=== PATIENT | female | born 1975 | race Caucasian/White ===

== ENCOUNTER 2016-10-11 09:50 | Inpatient (IN) | payer OTHER ==
[~2016-10-11] VITALS: Ht 167.6 cm; Wt 93.9 kg
[2016-10-11 10:08] VITALS: BP 113/85
[2016-10-11 10:48] LABS: ABSOLUTE BASOPHIL COUNT 0 /CUMM (0.0-0.2); ABSOLUTE EOSINOPHIL COUNT 0.1 /CUMM (0.0-0.7); ABSOLUTE GRANULOCYTE CT 7.4 /CUMM (1.4-6.5); ABSOLUTE LYMPH COUNT 1.8 /CUMM (1.2-3.4); ABSOLUTE MONOCYTE COUNT 0.7 /CUMM (0.10-0.60); BASOPHIL % 0.4 % (0.0-2.0); EOSINOPHIL % 1.1 % (0-5); GRANULOCYTE % 73.9 % (42.2-75.2); HEMATOCRIT 34.7 % (37-47); MEAN CORPUSCULAR HGB 31.9 PG (27.0-31.0); MEAN CORPUSCULAR HGB CONC 34.2 G/DL (33.0-37.0); MEAN CORPUSCULAR VOLUME 93.4 FL (81.0-99.0); MEAN PLATELET VOLUME 9.5 FL (7.4-10.4); PLATELET COUNT 247 /CUMM (130-400); RBC DISTRIBUTION WIDTH 11.9 % (11.5-14.5); RED BLOOD CELL CT 3.72 /CUMM (4.20-5.40)
[2016-10-11] MEDS ORDERED: PRENATAL TABLE1 EAC2 PO (16:28)
--- NOTE | 2016-10-11 17:05 | History & Physical ---
General Information and HPI MD Statement: I have seen and personally examined DB ROBERT and documented this H&P. The patient is a 41 year old female at [39] weeks and [5] days gestation who presented with a chief complaint of [induction for favorable ccervix and age >/= 40 years old]. Source of Information: patient, old records Exam Limitations: no limitations History of Present Illness: Is a 41-year-old 1 para 0 LMP of 01/07/2016 and OSCAR of 10/13/2016 is brought in at 39-5/7 weeks for induction of labor due to favorable cervix and maternal age greater than or equal to age 40 Issues for this #1 advanced maternal age Preconceptionally she had genetic screening that showed that she was negative for cystic fibrosis, SMA, and fragile X. First trimester screen at [facility] showed a thickened nuchal translucency. Patient declined self free DNA testing once the increased nuchal translucency was noted. No other abnormalities were noted at that time. Patient declined invasive genetic testing. She subsequently underwent anatomy scan in [facility] that showed normal findings and a normal echocardiogram to the fact that this is an IVF Conception Patient has been followed with weekly biophysical and nonstress testing since 32 weeks Problem #2 history of HPV change. Her initial colpo was number of years ago she had a Pap in November 2015 that showed ASCUS cytology changes with positive high risk HPV. She had a repeat colposcopy in 2015 showed SOTO-1/HPV change Problem #3 patient noted a pea-sized superficial nodule in the left axilla. This is right around 30 weeks' gestation in July. August 2016, Ultrasound was 0.4 cm cerebrovascular density and evaluation with Dr. Dias breast specialist, ultrasound-guided needle biopsy was was negative- breast gland tissue with ductal dilation and no evidence of any lymph node tissue Problem #4 estimated weight this week showed the baby to be 9 pounds. Patient was not of any risk factors I would've needed a sheet shoulder dystocia screen. Size of the baby discussed with patient and nursing staff, we will be prepared for possible shoulder dystocia at delivery. If patient has a prolonged second stage and will be less inclined to consider using vacuum extraction her forceps at time of delivery #5 patient has to minor risk factors for DVT. Patient has a BMI greater than 30 (32.7) And advanced maternal age greater than 40 (@ age 41). 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 Ultrasound showed a 4 mm vascular density. patient evaluated the Sandra Dias MD breast specialist ultrasound-guided biopsy showed breast tissue with dilated ducts no evidence of lymphatic tissue Surgical History Pertinent Surgical History: 2000 wrist surgery 2013 and 2015 colposcopy for HPV change August 2016 ultrasound-guided left axillary biopsy Past Family/Social History Family History Relations & Conditions if any Relation not specified for: *No pertinent family history Psychosocial History Where do you live? Home Who Do You Live With? spouse, self Primary Language: Colombian Smoking Status: Never Smoked ETOH Use: denies use Illicit Drug Use: denies illicit drug use Review of Systems Review of Systems: Currently negative for cardiac, GI complaints Exam & Diagnostic Data Last 24 Hrs of Vital Signs/I&O Temp 98.7 pulse 82 respirations 16 blood pressure 113/85 pulse ox 99% room air Vital Signs Date Time Temp Pulse Resp B/P Pulse O2 O2 Flow FiO2 Ox Delivery Rate 10/11 1008 98.7 82 16 113/85 99% RA Intake & Output 10/11 1600 10/11 0800 10/11 0000 Intake Total Output Total Balance Patient 210 lb Weight BMI 32.7 Obstetric Exam Wgt Gained During : 28 lbs Pelvimetry: Should be adequate for sex baby Dilation (cm): 5 Effacement (%): 80 Station: 0 Membranes: intact Fluid: unknown Fundal Height (cm): 38 Multiple Gestation? No Contractions: Irregular #1 - FHR Baseline: 120 Category: 1 Estimated Weight: 9# Presentation: VTX Patient for Induction? Yes Fisher Score Fisher Score Response Value Cervix Position: mid-position 1 Cervix Consistency: medium 1 Cervix Effacement: >80% 3 Cervix Dilation: 3-4 cm 2 Cervix Station: -1 2 Total 9 Physical Exam General Appearance Alert, Oriented X3, Cooperative, No Acute Distress Skin No Significant Lesion Cardiovascular Regular Rate Lungs Normal Air Movement Abdomen Normal Bowel Sounds, Soft, No Tenderness, No Hepatospenomegaly, gravid uterus fundal height 39 scans estimated weight 9 pounds. Heart rate 120 to 1:30 category 1 mild every other contraction Neurological Normal Gait, Normal Speech Extremities No Tenderness/Swelling Reproductive (FEMALE) Normal female genitalia Labs Blood Type & Rh: A+ Antibody Screen: n Hct/Hgb & Platelets #1: 12.1/36.4 platelet count 293,000 Hct/Hgb & Platelets #2: 11.7/35.8 platelet count 280,000 Rubella: Immune VDRL #1: N VDRL #2: N HbsAg: N HIV #1: N HIV #2 N 1 Hr P 3 Hr PG: N/A Group B Strep: POS Initial Ultrasound: 03/06/2016 size equal dates equals ultrasounds at 8 weeks 6 days OSCAR of 2016 Anatomy Ultrasound: Anatomy scan was performed 05/12/2016 size equals dates equals ultrasound. Normal level II anatomy scan. echo performed at 23 weeks within normal limits Ultrasound for EFW: 09/22/2016 growth scan was 8 lbs. 12 oz. 92nd percentile 3985 g. Follow-up scan 10/09/2016 9 pounds Genetic Testing: Patient underwent preconception genetic testing that showed that she was negative for cystic fibrosis, SMA, and fragile X. She underwent first trimester screen suggested increased nuchal translucency. When she got reported increased nuchal entrance lucency she declined this offer a DNA. She had follow-up scan in [facility] that showed a normal targeted anatomy with a negative aneuploidy scan at 18+ weeks. She ultimately had a echo that was within normal limits. Patient had declined invasive genetic testing also she declined [facility] amniocentesis Last 24 Hrs of Labs/Cody: Laboratory Tests 10/11/16 1025: CBC w Diff NO MAN DIFF REQ, RBC 3.72 L, MCV 93.4, MCH 31.9 H, RDW 11.9, MPV 9.5, Gran % 73.9, Lymphocytes % 17.9 L, Monocytes % 6.7, Eosinophils % 1.1, Basophils % 0.4, Absolute Granulocytes 7.4 H, Absolute Lymphocytes 1.8, Absolute Monocytes 0.7 H, Absolute Eosinophils 0.1, Absolute Basophils 0, PUBS MCHC 34.2 10/11/16 1020: Urine Color YEL, Urine Clarity CLEAR, Urine pH 7.5, Ur Specific [place] 1.010, Urine Protein NEG, Urine Ketones NEG, Urine Nitrite NEG, Urine Bilirubin NEG, Urine Urobilinogen 0.2, Ur Leukocyte Esterase NEG, Ur Microscopic EXAM NOT REQUIRED, Urine Hemoglobin NEG, Urine Glucose NEG Assessment/Plan Assessment/Plan: Imaging at 39-5/7 days who is here for an induction for advanced maternal age at age 41, 39+ weeks, and favorable cervix. It is somewhat concerning that weight is 9 pounds Plan is for careful monitoring, Pitocin induction, penicillin coverage for the history of positive group B beta strep in the per protocol Anticipate normal vaginal delivery. In light of the relatively large size of the baby, if the patient has a prolonged second stage I would be inclined not to use a vacuum extractor forceps , to facilitate delivery of the baby. Larger size baby also necessitated a discussion with the nursing staff, For possible interventions if there is the shoulder dystocia at time of delivery As Ranked By This Provider Problem List: 1. 2. Advanced maternal age (AMA), 40 years or greater 3. Elective induction of labor planned 4. BMI 32.0-32.9,adult Core Measures/Miscellaneous Venous Thromboembolism VTE Risk Factors: Age > 40, / VTE Contraindications: Active Bleeding (FALL RISK) VTE Prophylaxis Ordered Inpt: Mechanical (ALPS/TEDS) (lovenox PP BMI 32.7, age 41) VTE Diagnosis: No Beta Peyton Is Beta Peyton a Home Med? No If No, Why Not? NOT CLINICALLY INDICATED Antibiotics Is Patient on Antibiotics? Yes If Yes: prophylaxis Attending MD Review Statement Attending Statement Attending MD Statement: examined this patient, discussed with family, discussed w/nursing Attending Assessment/Plan: Briseida Shaffer ending dictation
--- NOTE | 2016-10-12 05:19 | PN- OBGYN ---
Surgical Brief Attending Note Brief Attending Note: S: Pt had steadily progressed in Labor, she was noted to be Fully and -1 station @ 2 am. (IUPC was placed @ 23:20, when pt was slowly progressing from 8 to 9 cm) Pt labored down until @ 02:30, and stated she had rectal pressure and wanted to start pushing. (Patients elderly parents are here on the unit, father is age 81, so pt may have tried to hasten getting to pushing and not properly labor down, to limit how long her parents had to wait to see their only grandchild. FHR was baseline 120's with good accellerations. VTX was @ -1. With pushing some variable decells to @ 100 bpmwere noted but good recovery. Mat T was 100.5 @ 3:30 and was given IV acetominophen x one. With pushing had some increase in baseline from 120' to 140's with accellerations. Vaginal exam showed small caput and molding, VTX descended intermittantly to 0 to +1 station- but not a consistent effort. @ 3:50, following a contraction, FHR decelleration to 100's with slow recovery over 4 to 5 minutes to 130- 140's. During this time pitocin was turned off, Maternal O2 was given, and change in Maternal position from hip wedge to lateral positioning. After recovery, FHR baseline was 140's with accellerations. Discussion with patient that @ this point we should turn off the epidural and allow her to have more sensation in the perineal area to help with her pushing. Contractions spaced out to every 4 to 5 minutes so pitocin was restarted. Assessment/ Plan : managenment of second stage- FHR shows baby is doing well. Baby has audible FM, pt never really labored down more than 30 minutes and then was not pushing effectively. will allow her to have return of sensation without the epidural, and to try to push again in the next hour or so. Patient and understand and agree. Briseida Shaffer MD
--- NOTE | 2016-10-12 07:31 | PN- OBGYN ---
Surgical Brief Attending Note Brief Attending Note: Once th epidural "wore off" Pt tried pushing again with manual vaginal assistance, to help guide her pushing efforts. She began pushing @ 06:00. By 6: 20 she was too uncomfortable with upper flank discomfort/ pain that she could no longer continue to try to push. Even with pushing, she could not maintain consistent pressure with her attempts. The VTX showed minimal movement with pushing. FHR remained reassuring through out the pushing attempt. FHR 110-12 BPM baseline Cat 1 contraction Q 2 to 3 min Pitocin @ 2 mu/hr Vag exam VTX @ 0 station with caput and molding PT became much more comfortable with the epidural re-topped. After a long discussion with the patient and her family, patient has decided that she would prefer a Cesarian Section. Due to a long labor and a presumed EF Wt of 9# discussed the risk of PP atony and resultant PP hemorhage, that may require medication (hemabate, methergine, misoprostyl inaddition to IV pitocin) extra uterine compression sutures, placement of a Bakri Balloon or even hysterecomy. Pt and and mother understand and agree. discussed with anesthesia- they agreed to a second IV site in the OR discussed with blood bank to switch the pt from type and screen to type and cross. plan Cesarian Section Elisabeth Shaffer
--- NOTE | 2016-10-12 09:10 | Labor & Delivery Summary ---
Delivery Summary Section: Section: primary Indication: Failure to descend Anesthesia: epidural Placenta: Placenta: normal, 3 vessel, occult cord prolapse @ delivery Anesthesia: epidural Cord PH Value: 7.34 Baby's Weight: Baby Boy 8#4oz Apgars - 1 Min: 8 Apgars - 5 Min: 9 Additional Comments: Prolonged second stage with failure to descend.. Patient was unable to push effectively either with or without epidural support. In the operating room at time of delivery. Upon entry into the uterine cavity there was an occult cord prolapse and the right arm delivered through the incision. Right arm had to be reduced and the deflexed occiput posterior position and the head required the head deflexed and then brought through the abdominal wall incision. Meconium-stained fluid noted at time of delivery weight 8 lbs. 4 oz. Apgars 8,9, and 9 cord pH 7.34. Minimal low segment atony was encountered which was managed by intramyometrial Pitocin IV Pitocin and IM Methergine. Uterine incision had a right low segment /cervical extension that was easily repaired without significant blood loss. Normal placenta 3 vessel cord Good hemostasis at all levels of closure.
--- NOTE | 2016-10-12 09:41 | Operative Report ---
Operative/Inv Procedure Report Surgery Date: 10/12/16 Name of Procedure: Primary low cervical transverse section Pre-Operative Diagnosis: 41-year-old with a flattened labor curve who after becoming fully dilated significant descent of the head after 5 hours of intermittent pushing. Estimated weight by ATU ultrasound showed the baby to be likely 9 pounds. Reassuring heart rate tracing Post-Operative Diagnosis: Same plus deflexed occiput posterior presentation. Occult cord prolapse noted upon entry into the uterine cavity, and initially a right hand and arm extending through the uterine incision, that required reduction before delivery of the vertex Estimated Blood Loss: 550 ML Surgeon/Service Center Manager: BERNADETTE HARMON,DES Cardt.: Eugenia Hernandez DO Anesthesia: epidural Monitors: Pulse oximeter, blood pressure cuff, EKG electrodes IV Fluids: 850 ML crystalloid Implants: None Urine Output: 480 mL clear yellow Drains: Gomez Specimens: Placenta Microbiology: N Tourniquet: N Complications: N Condition: GOOD Operative Indication: Failure to descend, presumed likely macrosomia Operative/Procedure Note Note: Patient was brought to the operating room and placed on the OR table in dorsal supine position. Timeout was discussed by the team and agreed upon. Patient had received in labor penicillin prophylaxis protocol for positive group B strep , she then received 2 g Kefzol upon entry into the OR. Pneumatic compression boots were placed on her lower extremities. Her abdomen was prepped and draped in the usual sterile fashion. After a good level of anesthesia was noted, her was brought to the operating room. Then a transverse incision was made in the skin 2 fingerbreadths above the symphysis. Incision was extended down to the fascia. Fascia then divided longitudinally and manually rectus muscles divided manually. The parietal peritoneum was elevated, incised and manually divided. A moderate amount of straw-colored peritoneal fluid was noted upon entry into the peritoneal cavity. Transverse incision was made in the peritoneum overlying the low uterine segment, and the utero vesicular fold was developed and the bladder was reflected inferiorly. Transverse incision was made in the uterine muscle and the cavity was entered bluntly. The uterine incision extended the right and left sides manually. Meconium-stained fluid was noted upon entry into the uterine cavity. At this point we had an 8 inch occult cord prolapse and presentation of the right arm and hand. Also projected through the uterine incision. The right arm and hand were then carefully returned to the uterine cavity, and the surgeon's hand was introduced into the low uterine segment and a deflexed occiput posterior vertex presentation was noted. The head was carefully flexed and brought through the uterine and abdominal wall incisions. Mouth and nasopharynx bulb suctioned on the uterus on the abdominal wall and the rest of infant's body was delivered without complication at 08:09 on 10/12/2016. Very broad shoulders of the were encountered delivering the baby through the uterine wall and the abdominal wall incisions. The umbilical cord was triply clamped and cut (cord pH 7.34) live viable baby boy was handed to the pediatric team for evaluation. weight 8 lbs. 4 oz. Apgars were 9, 9 and 9. Placenta was spontaneously delivered intact normal configuration 3 vessel cord. The uterus was exteriorized, and draped with wet lap pad. The uterine cavity was wiped clean with a sterile lap pad. Patient was given IV Pitocin intramyometrial Pitocin and ultimately IM Methergine for some low segment atony. Uterine incision was inspected and found to have a low cervical extension on the right-hand side but fortunately for us, there was no significant bleeding at that site. The uterine incision was closed with 2 separate layers first layer running locking second layer running imbricating. Pelvis was irrigated fluid was aspirated. The outer configuration the uterus fallopian tubes and ovaries were within normal limits. Uterus returned the abdominal pelvic cavity good hemostasis continued. Parietal peritoneum was closed with running suture. Muscle reapproximated with horizontal mattress suture. The muscle layer found to be dry. Fascia closed with running intermittently locking suture, in 2 separate segments. Subcutaneous tissues irrigated, and the fluid was aspirated. Subcutaneous was closed with running suture. Skin edges reapproximated with Monocryl subcuticular stitch. Completion the procedure sponge needle aspirate counts were correct 4. Compression dressing was applied. The patient was then placed in a frog-leg, dorsal supine position and the uterus was compressed manually with an abdominal hand. Moderate amount, 75 ML's of blood and Kiwi size clot was removed from the vaginal area. Vaginal exam showed no upper vaginal vault clot no low uterine segment clot and no significant bleeding after evacuation of the blood from the uterus. She was returned to dorsal supine position and then transferred to the stretcher for transport to the post delivery area. Uterus remained firm and lochia remained average. Rh+ immune Findings: 10/12/2016 08:09 time of delivery vertex presentation deflexed occiput posterior. At time of delivery occult cord prolapse and right hand and arm extended through the uterine incision that needed to be reduced before delivery of the vertex. Tight shoulders noted at time of delivery. Vigorous live viable baby boy. weight 8 lbs. 4 oz., Apgars 9, 9, and 9. Meconium-stained fluid noted at delivery cord pH 7.34 Normal placenta 3 vessel cord Uterine incision with a right hand cervical extension without significant blood loss. Mild uterine segment atony managed with intramyometrial Pitocin IV Pitocin and IM Methergine Normal uterus tubes and ovaries Discharge Disposition: CC: EUGENIA HERNANDEZ DO
[2016-10-13 08:46] LABS: ABSOLUTE BASOPHIL COUNT 0 /CUMM (0.0-0.2); BASOPHIL % 0.2 % (0.0-2.0)
[2016-10-13 08:52] LABS: ABSOLUTE EOSINOPHIL COUNT 0 /CUMM (0.0-0.7); ABSOLUTE GRANULOCYTE CT 13.3 /CUMM (1.4-6.5); ABSOLUTE MONOCYTE COUNT 0.8 /CUMM (0.10-0.60); EOSINOPHIL % 0.3 % (0-5); GRANULOCYTE % 82.1 % (42.2-75.2); HEMATOCRIT 30.2 % (37-47); MEAN CORPUSCULAR HGB 31.5 PG (27.0-31.0); MEAN CORPUSCULAR HGB CONC 33.7 G/DL (33.0-37.0); MEAN CORPUSCULAR VOLUME 93.6 FL (81.0-99.0); MEAN PLATELET VOLUME 10.1 FL (7.4-10.4); PLATELET COUNT 245 /CUMM (130-400); RBC DISTRIBUTION WIDTH 12.9 % (11.5-14.5); RED BLOOD CELL CT 3.22 /CUMM (4.20-5.40)
[2016-10-13 08:56] LABS: WHITE BLOOD CELL COUNT 16.2 /CUMM (4.8-10.8)
[2016-10-13] MEDS ORDERED: IBUPROFEN800 M1 PO (08:56)
[2016-10-13] MEDS ORDERED: PERCOCET 5-3251 EACH PO (08:56)
--- NOTE | 2016-10-13 09:48 | PN- Post Delivery/GYN ---
Subjective Subjective: OVERALL DONING WELL Review of Systems: NEG FOR CARDIAC PULMONARY GI COMPLAINTS Objective Last 24 Hrs of Vital Signs/I&O AFEBRILE VSS Physical Exam General Appearance Alert, Oriented X3, Cooperative, No Acute Distress Skin No Significant Lesion Cardiovascular Regular Rate Lungs Normal Air Movement Abdomen Normal Bowel Sounds, Soft, No Tenderness, No Hepatospenomegaly, UTERUS FIRM MIDLINE NONTENDER 2 TO 3 FB BELOW UMBILICUS INCIS CLEAN DRY INTACT Neurological Normal Gait, Normal Speech, Strength at 5/5 X4 Ext, Normal Tone Extremities No Tenderness/Swelling Reproductive (FEMALE) Normal female genitalia, AVGE LOCHIA Current Medications: Current Medications Sig/Herbert Start time Last Medication Dose Route Stop Time Status Admin Acetaminophen 650 MG Q4P PRN 10/12 0915 AC PO Bisacodyl 10 MG DAILY NEEDED PRN 10/12 0915 AC FL Bisacodyl 5 MG DAILY NEEDED PRN 10/12 0915 AC PO Butorphanol Tartrate 1 MG Q4P PRN 10/11 1430 AC 10/11 IV 1435 Butorphanol Tartrate 1 MG Q4P PRN 10/11 1430 10/11 IM 1434 Diphenhydramine HCl 25 MG Q6P PRN 10/12 1030 AC 10/12 IV 2333 Docusate Sodium 100 MG BID 10/12 2200 AC PO Enoxaparin Sodium 40 MG DAILY 10/12 1000 AC 10/12 SC 2000 Hydromorphone HCl 50 MG Q24H PRN 10/12 0915 10/12 Sodium Chloride 45 ML IV 0920 Hydroxyzine HCl 50 MG AT BEDTIME NEED.. 10/13 0000 AC PO 10/16 0001 Ibuprofen 800 MG Q6P PRN 10/12 0915 10/13 PO 0705 Ketorolac 30 MG Q6H 10/12 0930 DC 10/12 Tromethamine IV 10/13 0331 0900 Lactated Ringer's 1,000 ML Q8H 10/12 0915 AC 10/12 IV 1631 Magnesium Hydroxide 30 ML DAILY NEEDED PRN 10/12 0915 AC PO 10/15 0916 Metoclopramide HCl 10 MG Q6P PRN 10/12 1030 AC IV Naloxone HCl 0.2 MG ONCE PRN 10/12 1030 IV Ondansetron HCl 4 MG Q6P PRN 10/11 2345 AC 10/11 IV 2330 Oxycodone/ 1 TAB Q4P PRN 10/12 0915 AC 10/13 Acetaminophen PO 0705 Oxycodone/ 2 TAB Q4P PRN 10/12 0915 AC Acetaminophen PO Oxytocin 20 UNITS Q8H 10/12 0915 DC 10/12 Lactated Ringer's 1,000 ML IV 10/12 1714 0910 Oxytocin 30 UNITS PER PROTOCL 10/11 1000 AC 10/11 Lactated Ringer's 500 ML IV 1041 Penicillin G 2.5 MU Q4H 10/11 1400 DC 10/12 Potassium IV 10/12 1029 0709 Dextrose/Water 100 ML Senna 187 MG AT BEDTIME NEED.. 10/12 0915 AC PO Simethicone 80 MG Q6 10/13 0600 AC PO Last 24 Hrs of Labs/Cody: Laboratory Tests 10/13/16 0655: CBC w Diff NO MAN DIFF REQ, RBC 3.22 L, MCV 93.6, MCH 31.5 H, RDW 12.9, MPV 10.1, Gran % 82.1 H, Lymphocytes % 12.3 L, Monocytes % 5.1, Eosinophils % 0.3, Basophils % 0.2, Absolute Granulocytes 13.3 H, Absolute Lymphocytes 2.0, Absolute Monocytes 0.8 H, Absolute Eosinophils 0, Absolute Basophils 0, PUBS MCHC 33.7 Assessment/Plan Assessment/Plan STABLE PPD 3 1 ADVANCE DIET INCREASE AMBULATION PO PAIN MEDS ? WANR CIRC FOR THEIR SON Problem List: 1. Advanced maternal age (AMA), 40 years or greater 2. Elective induction of labor planned 3. BMI 32.0-32.9,adult 4. Arrest of descent, delivered, current hospitalization 5. delivery delivered Attending MD Review Statement Attending Statement Attending Statement: examined this patient, discussed with family, discussed with nursing Attending Assessment/Plan: Elisabeth FLEMING MD
[2016-10-13] MEDS ORDERED: FERROUS SULFAT325 M3 PO (09:57)
[2016-10-13] MEDS ORDERED: COLACE100 M1 PO (09:57)
--- NOTE | 2016-10-14 16:50 | PN- Obstetrical ---
Subjective Subjective: Doing well- ambulating in [address]. Pain controlled w/ po pain meds Review of Systems: Neg for Cardiac pulmonary GI, complaints Objective Last 24 Hrs of Vital Signs/I&O Afebrile VSS Physical Exam General Appearance Alert, Oriented X3, Cooperative, No Acute Distress Skin No Significant Lesion Cardiovascular Regular Rate Lungs Normal Air Movement Abdomen Normal Bowel Sounds, Soft, No Tenderness, No Hepatospenomegaly, Uterus firm midline nontender 3 FB below umbilicus Incision clean dry intact Neurological Normal Gait, Normal Speech Extremities No Tenderness/Swelling Reproductive (FEMALE) Normal female genitalia, avge lochia Obstetric Exam #1 - FHR Baseline: 120 Category: 1 Estimated Weight: 9# Presentation: VTX Current Medications: Current Medications Sig/Herbert Start time Last Medication Dose Route Stop Time Status Admin Acetaminophen 650 MG Q4P PRN 10/12 0915 AC PO Bisacodyl 10 MG DAILY NEEDED PRN 10/12 0915 AC WA Bisacodyl 5 MG DAILY NEEDED PRN 10/12 0915 AC PO Butorphanol Tartrate 1 MG Q4P PRN 10/11 1430 AC 10/11 IV 1435 Butorphanol Tartrate 1 MG Q4P PRN 10/11 1430 AC 10/11 IM 1434 Diphenhydramine HCl 25 MG Q6P PRN 10/12 1030 AC 10/12 IV 2333 Docusate Sodium 100 MG .STK-MED ONE 10/13 2157 DC PO 10/13 2158 Docusate Sodium 100 MG BID 10/12 2200 AC 10/13 PO 1107 Enoxaparin Sodium 40 MG DAILY@10/13 AC 10/13 SC 2026 Hydromorphone HCl 50 MG Q24H PRN 10/12 0915 AC 10/12 Sodium Chloride 45 ML IV 0920 Hydroxyzine HCl 50 MG AT BEDTIME NEED.. 10/13 0000 AC PO 10/16 0001 Ibuprofen 800 MG .STK-MED ONE 10/14 0831 DC PO 10/14 0832 Ibuprofen 800 MG .STK-MED ONE 10/14 0159 DC PO 10/14 0200 Ibuprofen 800 MG .STK-MED ONE 10/13 1828 DC PO 10/13 1829 Ibuprofen 800 MG Q6P PRN 10/12 0915 AC 10/14 PO 1434 Lactated Ringer's 1,000 ML Q8H 10/12 0915 AC 10/12 IV 1631 Magnesium Hydroxide 30 ML DAILY NEEDED PRN 10/12 0915 AC PO 10/15 0916 Metoclopramide HCl 10 MG Q6P PRN 10/12 1030 AC IV Naloxone HCl 0.2 MG ONCE PRN 10/12 1030 AC IV Ondansetron HCl 4 MG Q6P PRN 10/11 2345 AC 10/11 IV 2330 Oxycodone/ 1 TAB Q4P PRN 10/12 0915 AC 10/13 Acetaminophen PO 0705 Oxycodone/ 2 TAB Q4P PRN 10/12 0915 AC Acetaminophen PO Oxytocin 30 UNITS PER PROTOCL 10/11 1000 AC 10/11 Lactated Ringer's 500 ML IV 1041 Senna 187 MG AT BEDTIME NEED.. 10/12 0915 AC PO Simethicone 80 MG Q6 10/13 0600 AC 10/13 PO 1107 Assessment/Plan Assessment/Plan Stable POD/ PPD #2 Routine PP care increase ambulation reg diet likely home in AM Elisabeth Stout Problem List: 1. Advanced maternal age (AMA), 40 years or greater 2. Elective induction of labor planned 3. BMI 32.0-32.9,adult 4. Arrest of descent, delivered, current hospitalization 5. delivery delivered Attending MD Review Statement Attending Statement Attending Statement: examined this patient, discussed with family, discussed with nursing Attending Assessment/Plan: Elisabeth Shaffer MD
--- NOTE | 2016-10-15 11:49 | Discharge Summary ---
Visit Information Visit Dates Admission Date: 10/11/16 Discharge Date: 10/15/2016 Hospital Course Course Attending Physician: BERNADETTE HARMON,[facility] Dent Primary Care Physician: HEBER HARMON,[facility] Course: Is a 41-year-old 1 para 0 LMP of 01/07/2016 and OSCAR of 10/13/2016 is brought in at 39-5/7 weeks for induction of labor due to favorable cervix and maternal age greater than or equal to age 40 Issues for this #1 advanced maternal age Preconceptionally she had genetic screening that showed that she was negative for cystic fibrosis, SMA, and fragile X. First trimester screen at [facility] showed a thickened nuchal translucency. Patient declined self free DNA testing once the increased nuchal translucency was noted. No other abnormalities were noted at that time. Patient declined invasive genetic testing. She subsequently underwent anatomy scan in [facility] that showed normal findings and a normal echocardiogram to the fact that this is an IVF Conception Patient has been followed with weekly biophysical and nonstress testing since 32 weeks Problem #2 history of HPV change. Her initial colpo was number of years ago she had a Pap in November 2015 that showed ASCUS cytology changes with positive high risk HPV. She had a repeat colposcopy in 2016 showed SOTO-1/HPV change Problem #3 patient noted a pea-sized superficial nodule in the left axilla. This is right around 30 weeks' gestation in July. August 2016, Ultrasound was 0.4 cm cerebrovascular density and evaluation with Dr. Dias breast specialist, ultrasound-guided needle biopsy was was negative- breast gland tissue with ductal dilation and no evidence of any lymph node tissue Problem #4 estimated weight this week showed the baby to be 9 pounds. Patient was not of any risk factors I would've needed a sheet shoulder dystocia screen. Size of the baby discussed with patient and nursing staff, we will be prepared for possible shoulder dystocia at delivery. If patient has a prolonged second stage and will be less inclined to consider using vacuum extraction her forceps at time of delivery #5 patient has two minor risk factors for DVT. Patient has a BMI greater than 30 (32.7) And advanced maternal age greater than 40 (@ age 41). Will have ALPs in labor during her induction and then Lovenox . ( Cesarian delivery would add a major indicator) Pt underwent Pitocin induction starting @ 3 cm dilation. Pt was maintianed on the Gr B Strept IV + PCN protocal in labor. Pt made slow but steady progress to full dilation. Labor was managed by placement of IUPC to modulate pitocin dosage for adequate uterine contractions. Pt had difficulty in being effective with her pushing attempts with and without her epidural coverage. Despite episodes of laboring down there was no progress of the vertex past 0 station despite nearly a 5 hr second stage. FHR remained reassuring throughout the labor process. Pt had 1 mild elevation of temperature in labor that responded to IV acetominophen x 1. Prolonged second stage with failure to descend.. Patient was unable to push effectively either with or without epidural support. In the operating room at time of delivery. Upon entry into the uterine cavity there was an occult cord prolapse and the right arm delivered through the incision. Right arm had to be reduced and the deflexed occiput posterior position and the head required the head deflexed and then brought through the abdominal wall incision. Meconium-stained fluid noted at time of delivery weight 8 lbs. 4 oz. Apgars 9, 9, and 9 cord pH 7.34. Minimal low segment atony was encountered which was managed by intramyometrial Pitocin IV Pitocin and IM Methergine. Uterine incision had a right low segment /cervical extension that was easily repaired without significant blood loss. Normal placenta 3 vessel cord Good hemostasis at all levels of closure. pt was placed on lovenox daily. She had a benign PP course, She was easily advanced to a regular diet. She had full return of GI function, and her pain was well controlled with oral pain medication. Incision remained clean, dry, and intact. Pt was discharged home on PP day #3 Allergies: Coded Allergies: No Known Allergies (10/11/16) Significant Procedures: 10/13/2016: Primary Low cervical Cesarian Section Pertinent Lab Results: POD #1 CBC 10. 245,000 plts neg urine c/s Disposition Summary Disposition Principal Diagnosis: Term live male delivered Additional Diagnosis: AMA @ age 41 Arrest of descent OP Presentation BMI 30 -35 IVF conception acute blood loss anemia Discharge Disposition: home or self care Discharge Instructions General Discharge Information Code Status: Full Code Patient's Diet: regular Patient's Activity: restricted activities x 6 wks Follow-Up Instructions/Appts: 2 wks and 6 wks PP Medications at Discharge Discharge Medications: Continue taking these medications: Vit No.130/Iron/FA ( Tablet) 27 MG IRON-800 MCG TABLET 1 Tablet ORAL DAILY Start taking the following new medications: Ibuprofen (Ibuprofen) 800 MG TABLET 800 Milligram ORAL EVERY SIX HOURS NEEDED as needed for UTERINE CRAMPING Qty = 60 Refills = 6 Comments: Last Taken:10/15/16 Time:0830 Oxycodone HCl/Acetaminophen (Percocet 5-325 MG Tablet) 5 MG-325 MG TABLET 1-2 Tablet ORAL EVERY 4 HOURS NEEDED as needed for PAIN SCALE 4 -10 MOD- SEVERE Qty = 30 No Refills Ferrous Sulfate (Ferrous Sulfate) 325 MG (65 MG IRON) TABLET 1 Tablet ORAL DAILY Qty = 60 Refills = 2 Docusate Sodium (Colace) 100 MG CAPSULE 1 Capsule ORAL TWICE DAILY as needed for STOOL SOFTENER Qty = 60 Refills = 3 Copies To: EUGENIA HERNANDEZ DO Attending Review Statement Documenting Attending: DES FLEMING MD Other Findings: n/a
== END 2016-10-15 12:00 | DRG 766 ==
LOC: GNO 09:50
PROVIDERS: Obstetrics & Gynecology; ADMIT Obstetrics & Gynecology
PROC: 3E033VJ Introduction of Other Hormone into Peripheral Vein, Percutaneous Approach (ICD-10-PCS; 2016-10-11)
PROC: 10D00Z1 Extraction of Products of Conception, Low, Open Approach (ICD-10-PCS; principal; 2016-10-12)
DX: O64.0XX0 Obstructed labor due to incomplete rotation of fetal head, not applicable or unspecified (principal); O09.513 Supervision of elderly primigravida, third trimester; Z3A.39 39 weeks gestation of pregnancy; Z37.0 Single live birth; O69.0XX0 Labor and delivery complicated by prolapse of cord, not applicable or unspecified
CPT/HCPCS: GNOP; GNOS; 36415; 81003; 87086; 88307; J0131; J0595; J0690; J1170; J1200; J1650; J1885; J2210; J2405; J7120